=== PATIENT | female | born 1975 | race Caucasian/White ===

== ENCOUNTER → 2016-11-16 15:40 | Outpatient (CLI) | payer OTHER ==
[2013-02-22 07:39] VITALS: BMI 36.9
== END | disposition home or self-care (01) ==
LOC: D.CT 15:40
DX: R10.9 Unspecified abdominal pain (principal)

== ENCOUNTER → 2017-11-06 13:54 | Outpatient (CLI) | payer OTHER ==
[2013-02-22 07:39] VITALS: BMI 36.9
== END | disposition home or self-care (01) ==
LOC: D.CT 13:54
DX: R10.9 Unspecified abdominal pain (principal); M54.9 Dorsalgia, unspecified

== ENCOUNTER 2017-12-01 08:07 | Emergency (ER) | payer OTHER ==
[2013-02-22 07:39] VITALS: BMI 36.9
[2017-12-01 08:45] LABS: BASOPHILS 0 % (0-2); EOSINOPHILS 0.8 % (0-7); HEMATOCRIT 39.4 % (36.0-48.0); MCH 30.4 pg (26.0-34.0); MCV 92.3 fL (80.0-100.0); MEAN PLATELET VOLUME 11.8 fL (7.4-10.4); MONOCYTES 10.8 % (2-11); NEUTROPHILS 56.4 % (40-80); PLATELET COUNT 105 10x3/uL (130-400); RBC 4.27 10x6/uL (4.00-5.40); RDW 13.4 % (11.5-14.5); WBC 3.7 10x3/uL (4.8-10.8)
[2017-12-01 08:51] LABS: ALBUMIN 3.9 g/dL (3.4-5.0); ALKALINE PHOSPHATASE 76 U/L (46-116); ALT (SGPT) 27 U/L (10-68); BILIRUBIN - TOTAL 0.22 mg/dL (0.2-1.3); CALC OSMOLALITY 281 mosm/kg (275-300); CALCIUM 9.1 mg/dL (8.5-10.1); CARBON DIOXIDE 27.5 mmol/L (21.0-32.0); CHLORIDE - SERUM 106 mmol/L (98-107); CREATININE - SERUM 0.7 mg/dL (0.6-1.3); GLUCOSE 85 mg/dL (74-106); POTASSIUM - SERUM 3.9 mmol/L (3.5-5.1); PROTEIN - SERUM 7.5 g/dL (6.4-8.2); SODIUM 141 mmol/L (136-145); UREA NITROGEN 17 mg/dL (7-18); eGFR NON AFRICAN AMERICAN > 90 mL/min (90-120)
[2017-12-01 09:02] LABS: CHOLESTEROL, TOTAL 194 mg/dL (0-200); CKMB 3.2 U/L (0.0-3.6); CREATINE KINASE 176 UL (21-215); HDL CHOLESTEROL 64 mg/dL (32-96); LDL CHOLESTEROL 113 mg/dL (0-100); LDL-HDL RATIO 1.8 ratio (1.5-3.5); TRIGLYCERIDE 85 mg/dL (30-200)
[2017-12-01 09:04] LABS: TROPONIN-I < 0.017 ng/mL (0.000-0.060)
== END 2017-12-01 12:45 | disposition home or self-care (01) ==
LOC: D.ER 08:07
PROVIDERS: Emergency Medicine
DX: R07.9 Chest pain, unspecified (principal); I10 Essential (primary) hypertension

== ENCOUNTER → 2017-12-08 10:15 | Outpatient (CLI) | payer OTHER ==
[2013-02-22 07:39] VITALS: BMI 36.9
--- NOTE | ~2017-12-08 | EC ---
PATIENT:ALLIE HAMEED DATE OF SERVICE: 12/08/17 SEX: F MEDICAL RECORD: [id number] DATE OF : 71 LOCATION:[facility] AGE OF PATIENT: 42 ADMISSION DATE: 12/08/17 REFERRING PHYSICIAN: INTERPRETING PHYSICIAN: LINDA FORMAN MD ECHOCARDIOGRAM REPORT ECHO CHARGES 4 ECHO COMPLETE CLINICAL DIAGNOSIS: HTN/PALPS/DIZZINESS/SOB ECHOCARDIOGRAPHIC MEASUREMENTS (adult normal given) AC root (d.<3.7cm) 4.1 cm LV Septum d (<1.2 cm> 1.2 cm Valve Excursion 1.9 cm LV Septum (systole) 1.7 cm Left Atria (s.<4.0cm> 14.2 cm LVPW d(<1.2cm) 1.6 cm RV (d.<2.3cm) 4.4 cm LVPW (sytole) 1.9 cm LV diastole(<5.6CM) 5.1 cm MV E-F(>70mm/sec) cm LV systole 2.9 cm LVOT Diameter 2.1 cm MV exc.(>10mm) 1.5 cm Est.ejection fraction (50-75%) % Pericardial Effusion N DOPPLER: LVIT cm/sec A 93.0 cm/sec E 77.0 cm/sec LA cm/sec RVSP 29 mmHg LVOT 180 cm/sec AOP1/2T m/s Asc. Ao 205 cm/sec RVOT 90 cm/sec RA cm/sec PA 126 cm/sec AV Gradient Peak 16.84mmHg AV Mean 9.27 mmHg AV Area 3.2 cm MV Gradient Peak 6.54 mmHg MV Mean 3.91 mmHg MV Area cm COMMENTS: Social Insurance Administrator: 2 RUSSELL CHEUNG [employer] Blasting: 3 Dr. Galeas TAPE# PACS DATE OF SERVICE: 12/08/2017 Adequate 2D echo, color flow and spectral Doppler, and M-mode. No LVH. LV internal dimension is normal. Wall motion is normal. EF is greater than or equal to 55%. Aortic valve is tricuspid. No evidence of stenosis by Doppler interrogation. The left atrium is normal. Mitral valve has no prolapse. Trace MR. Right-sided chamber is grossly normal. Trace TR. TRANSINT:[id number] Voice Confirmation ID: [id number] DOCUMENT ID: [id number] ECHOCARDIOGRAM REPORT [id number] ANTONIO GREGORY A MD at 0919 CC: [id number] DICTATION DATE: 12/08/171729 [employer] OPERATOR: 12/09/17 0045 DEP CLI 12/08/17 [id number] [place] [address]
== END | disposition home or self-care (01) ==
LOC: D.US 10:00 → D.ECHO 10:30
DX: R42 Dizziness and giddiness (principal)

== ENCOUNTER → 2018-04-09 15:20 | Outpatient (CLI) | payer OTHER ==
[2013-02-22 07:39] VITALS: BMI 36.9
== END | disposition home or self-care (01) ==
LOC: D.MRI 15:20
DX: M54.6 Pain in thoracic spine (principal)

== ENCOUNTER → 2018-08-02 08:48 | Outpatient (CLI) | payer OTHER ==
[2013-02-22 07:39] VITALS: BMI 36.9
== END | disposition home or self-care (01) ==
LOC: D.MRI 08:48
DX: Z98.890 Other specified postprocedural states (principal)